=== PATIENT | female | born 1985 | race African-American/Black ===

== ENCOUNTER 2021-02-04 12:43 | Emergency (ER) | payer SELFPAY ==
[~2021-02-04] VITALS: Ht 170.2 cm; Wt 87.0 kg
[2021-02-04 12:54] VITALS: BP 123/74
[2021-02-04] MEDS ORDERED: ACETAMINOPHEN 325MG TABLET PO ONE (15:00)
[2021-02-04] MEDS ORDERED: ACET-2708 MT (18:50)
[2021-02-04] MEDS ORDERED: NAPR-1176 MT (18:50)
== END 2021-02-04 19:01 | disposition home or self-care (01) ==
LOC: ER 12:43
DX: M25.561 Pain in right knee (principal); M79.604 Pain in right leg; M71.21 Synovial cyst of popliteal space [Baker], right knee
CPT/HCPCS: 73562; 81025; 93971; 99284